=== PATIENT | male | born 1950 | race Caucasian/White ===

== ENCOUNTER 2018-06-15 12:59 | Observation (INO) | payer OTHER ==
[~2018-06-15] VITALS: Ht 177.8 cm; Wt 149.6 kg
[2018-06-15] MEDS ORDERED: KETOROLAC TROMETHAMINE 30MG/ML ONE (13:19)
[2018-06-15 14:59] LABS: APPEARANCE,URINE Clear (CLEAR); BILIRUBIN,URINE Negative (NEGATIVE); COLOR,URINE Yellow (YELLOW); GLUCOSE, URINE (UA) Negative (NEGATIVE); KETONES,URINE 15 mg/dL (NEGATIVE); LEUKOCYTE ESTERASE ,URINE Negative (NEGATIVE); NITRATE,URINE Negative (NEGATIVE); OCCULT BLOOD,URINE Moderate (NEGATIVE); PH,URINE 5.5 (5.0-8.0); PROTEIN,URINE Negative (NEGATIVE)
[2018-06-15 15:08] LABS: HYALINE CASTS, URINE 0-1 /LPF (0-1 /LPF); MUCUS,URINE Moderate LPF (None Seen)
[2018-06-15 15:10] LABS: BACTERIA,URINE Few /HPF (None Seen); WBC,URINE 0-1 /HPF (0-1)
[2018-06-15] MEDS ORDERED: FENTANYL CITRATE PF 50 MCG/1 ML 2ML VIAL ONE ×2 (15:19→16:43)
[2018-06-15] MEDS ORDERED: ONDANSETRON HCL 4 MG/2 ML VIAL ONE (16:35)
[2018-06-15] MEDS ORDERED: HYDROMORPHONE 1 MG/1 ML AMP IVP PRN (17:45)
[2018-06-15] MEDS ORDERED: ONDANSETRON HCL 4 MG/2 ML VIAL IVP PRN (17:45)
[2018-06-15 19:24] VITALS: BP 137/66
[2018-06-15] MEDS: ZOSYN 3.375GM+NS 50ML 50 ML IV SCH (20:38)
[2018-06-15] MEDS ORDERED: TAMSULOSIN HCL 0.4 MG CAP.ER.24H PO SCH (21:00)
[2018-06-15] MEDS ORDERED: APRE30TA2 PO (21:07)
[2018-06-15] MEDS ORDERED: IBUP-2077 PO (21:17)
[2018-06-15 23:59] VITALS: BP 95/44
[2018-06-16 03:44] VITALS: BP 108/56
[2018-06-16 04:37] LABS: MEAN CORPUSCULAR HEMOGLOBIN 33.5 pg (27.0-33.0); MEAN CORPUSCULAR HGB CONC 34.1 g/dL (32.0-36.0); MEAN CORPUSCULAR VOLUME 98.3 fL (79-99); PLATELET COUNT (AUTO) 207 K/uL (130-400); RED BLOOD CELL COUNT(AUTO) 4.06 MIL/uL (4.50-6.20); RED CELL DISTRIBUTION WIDTH 13.6 % (11.0-15.5); WHITE BLOOD COUNT (AUTO) 9.4 K/uL (4.8-10.8)
[2018-06-16 04:45] LABS: POTASSIUM 3.4 mmol/L (3.5-5.1)
[2018-06-16 07:30] VITALS: BP 97/41
[2018-06-16] MEDS: ZOSYN 3.375GM+NS 50ML 50 ML IV SCH ×2 (09:48→16:00)
[2018-06-16 11:00] VITALS: BP 114/58
[2018-06-16] MEDS ORDERED: IOHEXOL 350 MG/ML 100ML INFUS..BTL IV ONE (14:44)
[2018-06-16] MEDS ORDERED: POTASSIUM CHLORIDE 20 MEQ ERTAB PO ONE (19:00)
--- NOTE | 2018-06-16 20:02 | NUR ---
PATIENT DISCHARGE PATIENT DISCHARGED, IV DISCONTINUED, CATHLON INTACT, BLEEDING CONTROLLED, PATIENT TOLERATED WITHOUT INCIDENT.
== END 2018-06-16 20:00 | disposition home or self-care (01) ==
LOC: EDH 12:59 → EDHIP 16:42 → 3AH 19:26
PROVIDERS: ADMIT Internal Medicine Critical Care Medicine; ATTEND Internal Medicine Critical Care Medicine
DX: N23 Unspecified renal colic (principal); L40.50 Arthropathic psoriasis, unspecified; I25.10 Atherosclerotic heart disease of native coronary artery without angina pectoris; M19.90 Unspecified osteoarthritis, unspecified site; I10 Essential (primary) hypertension; Z95.1 Presence of aortocoronary bypass graft; Z88.8 Allergy status to other drugs, medicaments and biological substances; Z79.899 Other long term (current) drug therapy
CPT/HCPCS: 36415; 74176; 74400; 80048; 81001; 85027; 96365; 96366 ×2; 96375; 99284; G0378 ×27; J1170; J1885; J2405; J2543 ×2; J3010 ×2; Q9967